=== PATIENT | male | born 1990 | race Hispanic/Latino ===

== ENCOUNTER 2021-03-25 14:53 | Emergency (ER) | payer OTHER ==
--- NOTE | 2021-03-25 15:39 | XRay Report ---
Left shoulder 3 views INDICATION: Shoulder pain FINDINGS: There is anterior inferior dislocation of the left shoulder. AC joint appears intact. No de finite fracture is seen. Postreduction radiograph recommended. Signer Name: Ariel Thayer MD Signed: 03/25/2021 3:34 PM Workstation Name: [id number]
[2021-03-25] MEDS ORDERED: ONDANSETRON 4 MG/2 ML INJ IV ONE (16:10)
[2021-03-25] MEDS ORDERED: fentaNYL 100 MCG/2 ML INJ IV ONE (16:10)
[2021-03-25] MEDS ORDERED: ETOMIDATE 20 MG/10 ML INJ IV ONE ×2 (16:13→16:15)
[2021-03-25] MEDS ORDERED: KETOROLAC 30 MG/1 ML INJ IV ONE (16:15)
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
[2021-03-25 17:16] VITALS: BP 141/83
== END 2021-03-27 06:30 ==
LOC: ED 14:53
DX: S43.085A Other dislocation of left shoulder joint, initial encounter (principal); F17.210 Nicotine dependence, cigarettes, uncomplicated; Z90.49 Acquired absence of other specified parts of digestive tract; X58.XXXA Exposure to other specified factors, initial encounter; Y93.89 Activity, other specified; Y92.89 Other specified places as the place of occurrence of the external cause; Y99.8 Other external cause status
CPT/HCPCS: 99284